=== PATIENT | male | born 1965 | race Caucasian/White ===

== ENCOUNTER → 2019-11-24 | Outpatient (CLI) | payer BC | END | disposition home or self-care (01) | LOC: LABWHC1 08:38 | PROVIDERS: ATTEND Surgery | DX: Z11.59 Encounter for screening for other viral diseases (principal) | CPT/HCPCS: 87635 ==

== ENCOUNTER 2019-11-27 10:31 | Day surgery (SDC) | payer BC ==
[2019-11-24 11:16] VITALS: BMI 36.2
[~2019-11-27 10:31] MED LIST: LACTATED RINGERS 1,000 ML IV SCH
--- NOTE | 2019-11-27 11:28 | P.GSHP ---
History of Present Illness H&P Date: 11/27/19 Chief Complaint: GERD, GI bleed This a 54-year-old male who presents today for EGD colonoscopy. Patient's complaints of GERD and GI bleed. Past Medical History Past Medical History: Diabetes Mellitus, GERD/Reflux, Hypertension, Sleep Apnea/CPAP/BIPAP, Thyroid Disorder Additional Past Medical History / Comment(s): BORDERLINE DIABETIC. ANEMIA. USES CPAP History of Any Multi-Drug Resistant Organisms: None Reported Past Surgical History: Hernia Repair Additional Past Surgical History / Comment(s): COLONOSCOPY/EGD Past Anesthesia/Blood Transfusion Reactions: No Reported Reaction Past Psychological History: No Psychological Hx Reported Smoking Status: Never smoker Past Alcohol Use History: None Reported Past Drug Use History: None Reported - Past Family History Mother Family Medical History: Cancer Medications and Allergies Home Medications Medication Instructions Recorded Confirmed Type Ferrous Sulfate [Feosol] 325 mg PO DAILY 11/24/19 11/24/19 History Furosemide [Lasix] 20 mg PO DAILY 11/24/19 11/24/19 History Levothyroxine Sodium [Levoxyl] 125 mcg PO DAILY 11/24/19 11/24/19 History Metoprolol Tartrate [Lopressor] 100 mg PO BID 11/24/19 11/24/19 History Modafinil [Provigil] 400 mg PO QAM 11/24/19 11/24/19 History Omeprazole [PriLOSEC] 40 mg PO HS 11/24/19 11/24/19 History Potassium Chloride [Klor-Con 20] 20 meq PO DAILY 11/24/19 11/24/19 History Semaglutide [Ozempic] 0.5 mg SQ WE 11/24/19 11/24/19 History Testosterone Cypionate 200 mg IM [id number] 11/24/19 11/24/19 History [Depo-Testosterone] Allergies Allergy/AdvReac Type Severity Reaction Status Date / Time codeine Allergy Rash/Hives Verified 11/24/19 10:53 Penicillins Allergy Rash/Hives Verified 11/24/19 10:53 Sulfa (Sulfonamide Allergy Rash/Hives Verified 11/24/19 10:53 Antibiotics) Surgical - Exam - General well developed, well nourished, no distress - Eyes PERRL - ENT normal pinna - Neck no masses - Respiratory normal expansion - Cardiovascular Rhythm: regular - Abdomen Abdomen: soft, non tender Assessment and Plan Assessment: GERD, GI bleed. We'll perform EGD and colonoscopy.
[2019-11-27] MEDS ORDERED: PROPOFOL 10 MG/ML 20 ML VIAL IV ONE (11:32)
[2019-11-27] MEDS ORDERED: LIDOCAINE 1% INJ 10MG/ML (20 ML MDV) ONE (11:32)
[2019-11-27] MEDS ORDERED: LACTATED RINGERS 900 ML IV ONE (11:37)
[2019-11-27 11:39] VITALS: RESP 20; TEMP 98
--- NOTE | 2019-11-27 11:49 | P.OP ---
Date of Procedure: 11/27/19 Preoperative Diagnosis: GERD GI bleed Postoperative Diagnosis: Antral gastritis Procedure(s) Performed: EGD Colonoscopy Anesthesia: MAC Surgeon: Duy Vasquez Pathology: other (Antrum) Condition: stable Disposition: PACU Description of Procedure: The patient's placed on the endoscopy table in the lateral position. He received IV sedation. The gastroscope placed oropharynx and passed in the esophagus and stomach. Scope was then placed through the pylorus. The first and second portion of the duodenum appeared normal. Scope was then brought back the antrum this. Mildly inflamed. A biopsies performed. The scope was unretroflexed and remainder of the stomach appeared normal. There was no s ignificant hiatal hernia. The GE junction was at 40 cm. The distals esophagus appeared normal. The proximal esophagus appeared normal. Scope withdrawn for patient. Next digital rectal exam performed, there was no abnormalities noted. The prostate was symmetric without nodules. The flexible colonoscope was then placed patient anus and passed throughout the entire colon. The ileocecal valve was visualized. The cecum, ascending and transverse colon appeared normal. In the descending and sigmoid colon there was a few scattered diverticula. Scope was then brought back the rectum and this appeared normal. The scope was then withdrawn from the patient.
[2019-11-27 11:57] VITALS: BP 123/71; PULSE 72
== END 2019-11-27 12:48 | disposition home or self-care (01) ==
LOC: ORWHC2ENDO 10:31
PROVIDERS: ATTEND Surgery
DX: K29.51 Unspecified chronic gastritis with bleeding (principal); K57.31 Diverticulosis of large intestine without perforation or abscess with bleeding; K21.9 Gastro-esophageal reflux disease without esophagitis; I10 Essential (primary) hypertension; R73.03 Prediabetes; G47.33 Obstructive sleep apnea (adult) (pediatric); Z99.89 Dependence on other enabling machines and devices; E07.9 Disorder of thyroid, unspecified; D64.9 Anemia, unspecified; Z98.890 Other specified postprocedural states; Z79.899 Other long term (current) drug therapy; Z79.890 Hormone replacement therapy; Z88.5 Allergy status to narcotic agent; Z88.0 Allergy status to penicillin; Z88.2 Allergy status to sulfonamides; Z80.9 Family history of malignant neoplasm, unspecified
CPT/HCPCS: 88305; 45378; 43239; J2001; J2704